=== PATIENT | male | born 1985 | race Caucasian/White ===

== ENCOUNTER 2018-08-30 12:53 | Emergency (ER) | payer MEDICAID ==
[~2018-08-30] VITALS: Ht 177.8 cm; Wt 81.6 kg
[2018-08-30 13:33] VITALS: BP 114/59
--- NOTE | 2018-08-30 13:33 | NUR ---
Patient discharged to home in stable conditon. Written and verbal after care instructions given. Patient verbalizes understanding of instructions.
== END 2018-08-30 13:33 | disposition home or self-care (01) ==
LOC: ER 12:53
DX: J45.21 Mild intermittent asthma with (acute) exacerbation (principal); J30.9 Allergic rhinitis, unspecified; R09.82 Postnasal drip; Z88.1 Allergy status to other antibiotic agents
CPT/HCPCS: A4663

== ENCOUNTER 2019-02-19 04:35 | Emergency (ER) | payer MEDICAID ==
[~2019-02-19] VITALS: Ht 177.8 cm; Wt 88.5 kg
--- NOTE | 2019-02-19 04:59 | NUR ---
MD AT BEDSIDE FOR HX AND PHYSICAL PT C/O 08/26 ON LEFT FOREARM + SWELLING TO THE SITE PT NAD, ABLE TO SPEAK CLEAR AND COMPLETE SENTENCES PT ABLE TO DO ROM WITH PAIN, DENIES PARESTHESIAS NOR RADICULOPATHIES TO THE SITE DENIES PREV TRAUMA NOR SURGERIES TO THE SITE
--- NOTE | 2019-02-19 05:11 | NUR ---
PT ABLE TO TOLERATE SHOULDER IMMOBILIZER FOR LEFT FOREARM (LARGE) PT DECLINES PAIN MEDS AT THIS TIME AND STATES HE IS ABLE TO TOLERATE PN FOR NOW Patient discharged to home in stable conditon. Written and verbal after care instructions given. Patient verbalizes understanding of instructions. AMBULATORY W/ STABLE GAIT ALL BELONGINGS W/ PT
[2019-02-19 05:14] VITALS: BP 111/76
== END 2019-02-19 05:14 | disposition home or self-care (01) ==
LOC: ER 04:35
DX: S49.92XA Unspecified injury of left shoulder and upper arm, initial encounter (principal); J45.909 Unspecified asthma, uncomplicated; Z88.1 Allergy status to other antibiotic agents; X50.1XXA Overexertion from prolonged static or awkward postures, initial encounter; Y93.89 Activity, other specified; Y92.89 Other specified places as the place of occurrence of the external cause; Y99.8 Other external cause status
CPT/HCPCS: A4663

== ENCOUNTER 2019-02-26 14:12 | Emergency (ER) | payer MEDICAID ==
[~2019-02-26] VITALS: Ht 177.8 cm; Wt 86.2 kg
--- NOTE | 2019-02-26 15:31 | NUR ---
PT WAS EVALUATED BY DR GOLD. PT WAS D/C'd TO HOME. D/C INSTRUCTIONS GIVEN TO THE PT.
[2019-02-26 15:33] VITALS: BP 132/68
== END 2019-02-26 15:34 | disposition home or self-care (01) ==
LOC: ER 14:16
DX: S49.92XD Unspecified injury of left shoulder and upper arm, subsequent encounter (principal); J45.909 Unspecified asthma, uncomplicated; Z88.1 Allergy status to other antibiotic agents; X58.XXXD Exposure to other specified factors, subsequent encounter
CPT/HCPCS: A4663